=== PATIENT | male | born 1975 | race Two or more races ===

== ENCOUNTER 2020-08-29 09:23 | Emergency (ER) | payer SELFPAY ==
[2020-08-29 10:19] LABS: URINE BILIRUBIN - DIPSTICK NEGATIVE (NEGATIVE); URINE BLOOD DIPSTICK NEGATIVE (NEGATIVE); URINE COLOR YELLOW; URINE GLUCOSE - DIPSTICK NEGATIVE (NEGATIVE); URINE KETONE NEGATIVE (NEGATIVE); URINE LEUK ESTERASE NEGATIVE (NEGATIVE); URINE PH 7.5 (4.5-8.0); URINE PROTEIN - DIPSTICK NEGATIVE (NEG-TRACE); URINE UROBILINOGEN - DIPSTICK 0.2 E.U./dL (0.2)
[2020-08-29 10:20] LABS: URINE NITRITE - DIPSTICK NEGATIVE (Negative)
[2020-08-29 12:35] VITALS: BP 136/82
== END 2020-08-29 12:35 | disposition home or self-care (01) | DRG 696 ==
LOC: ED 09:23
PROVIDERS: Emergency Medicine
DX: R82.90 Unspecified abnormal findings in urine (principal)